=== PATIENT | male | born 1995 | race Caucasian/White ===

== ENCOUNTER 2017-06-27 02:57 | Emergency (ER) | payer OTHER ==
[~2017-06-27] VITALS: Ht 188 cm; Wt 80.0 kg
[2017-06-27 03:05] VITALS: O2SAT 96; Ht 188 cm; Wt 80.0 kg
[2017-06-27] MEDS ORDERED: ONDANSETRON 4MG OD TAB PO ONE (03:15)
[2017-06-27 03:48] LABS: BUN/CREATININE RATIO 10.5 (10-20); CALCIUM 8.2 mg/dl (8.5-10.1); CREATININE 1.07 mg/dl (0.60-1.40); POTASSIUM 3.3 mmol/L (3.5-5.1)
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
[2017-06-27 09:57] VITALS: BP 112/70; PULSE 74; O2SAT 97
[2017-06-27 09:58] VITALS: TEMP 36.8
== END 2017-06-27 09:59 | disposition home or self-care (01) ==
LOC: C.EDB 02:59
DX: R41.82 Altered mental status, unspecified (principal)